=== PATIENT | female | born 1950 | race Caucasian/White ===

== ENCOUNTER 2016-11-28 10:36 | Inpatient (IN) | payer OTHER, BC ==
[~2016-11-28] VITALS: Ht 165.1 cm; Wt 96.8 kg
[~2016-11-28 10:36] MED LIST: ATORVASTATIN CA20 MG PO; BENICAR20 MG PO; FENOFIBRATE134 M1 PO; GLIPIZIDE10 MG PO; GLYXAMBI 25 MG1 EACH PO; LEVOTHYROXINE75 MCG PO; LO-DOSE ASPIRIN81 M2 PO
[2016-11-28 11:06] LABS: POINT-OF-CARE METER ID UU14174212
[2016-11-28 11:16] VITALS: BP 115/40
[2016-11-28 17:11] VITALS: BP 116/56
[2016-11-28 19:31] VITALS: BP 118/56
[2016-11-28 19:37] LABS: HEMATOCRIT 40.1 % (36.0-46.0); MCH 28.6 PG (29.0-34.0); MCHC 32.2 G/DL (30.0-36.0); MCV 88.9 FL (83-99); MEAN PLAT.VOLUME 10.8 uM^3 (9.5-12.4); PLATELET COUNT 302 K/uL (156-360); RBC DIS.WIDTH-CV 15.2 % (11.8-14.6); RBC DIS.WIDTH-SD 49.1 % (39-53); RED BLOOD COUNT 4.51 M/uL (3.80-5.20)
[2016-11-28 20:04] LABS: ANION GAP 12 MEQ/L (2-14); CHLORIDE 102 MEQ/L (99-109); GFR ESTIMATE (CALCULATED) 37 mL/min/; GLUCOSE 171 mg/dL (70-99); POTASSIUM 4.6 MEQ/L (3.7-5.4); SAMPLE HEMOLYSIS CHECK 0; SAMPLE ICTERIC CHECK 0; SAMPLE LIPEMIA CHECK 0; SODIUM 136 MEQ/L (136-147); UREA NITROGEN (BUN) 35 mg/dL (9-23)
[2016-11-28 22:56] LABS: POINT-OF-CARE USER ID AHSUCEG
[2016-11-28 23:24] VITALS: BP 130/58
[2016-11-29 04:02] VITALS: BP 128/59
[2016-11-29 06:46] LABS: HEMATOCRIT 40.1 % (36.0-46.0); MCH 28.4 PG (29.0-34.0); MCHC 32.2 G/DL (30.0-36.0); MCV 88.1 FL (83-99); MEAN PLAT.VOLUME 10.7 uM^3 (9.5-12.4); PLATELET COUNT 331 K/uL (156-360); RBC DIS.WIDTH-CV 15.1 % (11.8-14.6); RBC DIS.WIDTH-SD 48.7 % (39-53); RED BLOOD COUNT 4.55 M/uL (3.80-5.20); WHITE BLOOD COUNT 12.4 K/uL (4.1-10.2)
[2016-11-29 07:16] LABS: ANION GAP 10 MEQ/L (2-14); CHLORIDE 101 MEQ/L (99-109); GFR ESTIMATE (CALCULATED) 37 mL/min/; GLUCOSE 161 mg/dL (70-99); POTASSIUM 4.7 MEQ/L (3.7-5.4); SAMPLE HEMOLYSIS CHECK 0; SAMPLE ICTERIC CHECK 0; SAMPLE LIPEMIA CHECK 0; SODIUM 138 MEQ/L (136-147); UREA NITROGEN (BUN) 31 mg/dL (9-23)
[2016-11-29 07:38] VITALS: BP 133/60
[2016-11-29] MEDS ORDERED: TRAMADOL HCL50 MG PO (09:21)
[2016-11-29 12:04] VITALS: BP 101/62
[2016-11-29 16:03] VITALS: BP 129/56
[2016-11-30 00:29] VITALS: BP 114/56
[2016-11-30 06:41] LABS: MCH 28.2 PG (29.0-34.0); MCV 88.1 FL (83-99); PLATELET COUNT 302 K/uL (156-360); RBC DIS.WIDTH-CV 15.5 % (11.8-14.6); RBC DIS.WIDTH-SD 49.5 % (39-53); RED BLOOD COUNT 4.54 M/uL (3.80-5.20); WHITE BLOOD COUNT 10.3 K/uL (4.1-10.2)
[2016-11-30 07:11] LABS: ANION GAP 11 MEQ/L (2-14); CHLORIDE 102 MEQ/L (99-109); GFR ESTIMATE (CALCULATED) 37 mL/min/; GLUCOSE 147 mg/dL (70-99); POTASSIUM 4.1 MEQ/L (3.7-5.4); SAMPLE HEMOLYSIS CHECK 0; SAMPLE ICTERIC CHECK 0; SAMPLE LIPEMIA CHECK 0; SODIUM 137 MEQ/L (136-147); UREA NITROGEN (BUN) 32 mg/dL (9-23)
[2016-11-30 07:25] VITALS: BP 121/65
== END 2016-11-30 11:45 | disposition home or self-care (01) | DRG 735 ==
LOC: 2SOUTH 10:36 → 2EAST 17:08
PROVIDERS: Obstetrics & Gynecology Gynecologic Oncology
DX: C54.1 Malignant neoplasm of endometrium (principal); E11.9 Type 2 diabetes mellitus without complications; I10 Essential (primary) hypertension; E78.5 Hyperlipidemia, unspecified; E66.9 Obesity, unspecified; Z68.30 Body mass index [BMI] 30.0-30.9, adult
CPT/HCPCS: 36415; 80048; 82948; 85027; 86850; 86900; 86901; 86920; 88305; 88309; 88360; J0131; J0690; J1100; J1170; J1650; J1815; J1885; J2270; J2405; J2710; J2765; J3010; J7120